=== PATIENT | female | born 1950 | race Caucasian/White ===

== ENCOUNTER 2017-03-17 08:59 | Outpatient (CLI) | payer MEDICARE ==
--- NOTE | 2017-03-19 08:54 | Mammography Report ---
DATE OF SERVICE: 03/17/2017 DIGITAL BILATERAL SCREENING MAMMOGRAM: 03/17/2017 COMPARISON STUDY: Mammogram 02/14/2015. INDICATION: Screening mammography. TECHNIQUE: Bilateral MLO and CC breast views. FINDINGS: There are scattered fibroglandular densities. No dominant mass, architectural distortion, or concerning cluster of microcalcifications are seen. IMPRESSION: BIRADS category: 1, negative. RECOMMENDATION: Annual screening mammogram. STANDARD QUALIFYING STATEMENTS 1. This examination was reviewed with the aid of Computed-Aided Detection (CAD) . 2. A negative or benign imaging report should not delay biopsy if clinically suspicious findings are present. Consider surgical consultation if warranted. More than 5% of cancers are not identified by imaging. 3. Dense breasts may obscure an underlying neoplasm. TD: 03/18/2017 18:47 BOBBY
== END 2017-03-17 09:00 | disposition home or self-care (01) ==
LOC: DI 08:59
PROVIDERS: ATTEND Physician Assistant Medical
DX: Z12.31 Encounter for screening mammogram for malignant neoplasm of breast (principal)
CPT/HCPCS: 77067

== ENCOUNTER 2017-04-06 13:01 | Outpatient (CLI) | payer MEDICARE | END 2017-04-06 13:02 | disposition home or self-care (01) | LOC: SC 13:01 | PROVIDERS: ATTEND Nurse Practitioner Family | DX: G47.33 Obstructive sleep apnea (adult) (pediatric) (principal); G25.81 Restless legs syndrome | CPT/HCPCS: 99204; G0463; 99212 ==

== ENCOUNTER 2017-05-24 10:19 | Emergency (ER) | payer MEDICARE, OTHER ==
[2017-05-24 11:05] LABS: BASOPHILS % (AUTO) 0.1 %; EOSINOPHILS # (AUTO) 0.1 10^3/uL (0.0-0.7); EOSINOPHILS % (AUTO) 0.7 %; HGB - HEMOGLOBIN 12.4 g/dL (12.0-16.0); LYMPHOCYTES # (AUTO) 1.2 10^3/uL (1.5-3.5); LYMPHOCYTES % (AUTO) 8.4 %; MEAN CORPUSCULAR HEMOGLOBIN 31.5 pg (27.0-31.0); MEAN CORPUSCULAR HGB CONC 33.5 g/dL (32.0-36.0); MONOCYTES # (AUTO) 0.4 10^3/uL (0.0-1.0); MONOCYTES % (AUTO) 2.6 %; NEUTROPHILS # (AUTO) 12.1 10^3/uL (1.5-6.6); NEUTROPHILS % (AUTO) 88.2 %; PLT - PLATELET COUNT 244 10^3/uL (130-450); RED BLOOD COUNT 3.93 10^6/uL (4.20-5.40); RED CELL DISTRIBUTION WIDTH 13.8 % (12.0-15.0); WHITE BLOOD COUNT 13.7 x10^3/uL (4.8-10.8)
[2017-05-24 11:18] LABS: ALBUMIN 3.1 g/dL (3.2-5.5); ALBUMIN/GLOBULIN RATIO 0.6 (1.0-2.2); ALKALINE PHOSPHATASE 106 IU/L (42-121); ALT ALANINE AMINOTRANSFERASE 28 IU/L (10-60); AST ASPARTATE AMINOTRANSFERASE 25 IU/L (10-42); BILIRUBIN,TOTAL 0.6 mg/dL (0.2-1.0); BUN - BLOOD UREA NITROGEN 15 mg/dL (6-20); CALCIUM 9.8 mg/dL (8.5-10.3); CARBON DIOXIDE - CO2 25 mmol/L (21-32); CHLORIDE 97 mmol/L (101-111); CREATININE 0.8 mg/dL (0.4-1.0); GFR - MDRD 72 (>89); GLUCOSE 126 mg/dL (70-100); SODIUM 134 mmol/L (135-145); TOTAL PROTEIN 8.5 g/dL (6.7-8.2)
[2017-05-24 11:21] LABS: LIPASE < 10 U/L (22-51)
[2017-05-24 11:22] LABS: RBC MORPHOLOGY (MULTIPLE) 2+ ANISOCYTOSIS (NORMAL)
[2017-05-24 11:38] VITALS: BP 149/85
--- NOTE | 2017-05-24 12:04 | ED Physician Documentation ---
PD HPI URI - Stated complaint Stated Complaint: FLU LIKE SX - Chief complaint Chief Complaint: Resp - History obtained from History obtained from: Patient - History of Present Illness Timing - onset: How many weeks ago (1) Timing duration: Weeks (1) Timing details: Abrupt onset, Still present Associated symptoms: Fever, Chills, Nasal congestion, Swollen nodes, Productive cough. No: Hemoptysis, Chest pain, NVD, Bilateral edema Contributing factors: Immunocompromised (takes methotrexate for psoriasis. stopped it couple days ago.), COPD / asthma. No: Travel Worsened by: Activity Similar symptoms before: Has not had sx before Recently seen: Emergency Dept (seen and Rx with albuterol MDI and Vivian.) Review of Systems Constitutional: reports: Fever, Chills, Myalgias Nose: reports: Rhinorrhea / runny nose, Congestion Throat: denies: Sore throat Cardiac: denies: Chest pain / pressure Respiratory: reports: Dyspnea, Cough GI: reports: Nausea. denies: Abdominal Pain, Vomiting, Diarrhea : denies: Dysuria Skin: denies: Rash, Lesions PD PAST MEDICAL HISTORY - Past Medical History Cardiovascular: Hypertension Respiratory: Pneumonia Derm: Psoriasis - Past Surgical History Past Surgical History: Yes Ortho: Spine surgery - Present Medications Home Medications: Ambulatory Orders Medication Instructions Recorded Confirmed Methotrexate Sodium [Methotrexate] 2.5 mg PO 12/17/12 12/17/12 Albuterol Sulf [Ventolin Hfa 1 - 2 puffs INH Q4HR PRN #1 inhaler 05/24/17 Inhaler] Benzonatate [Tessalon] 100 mg PO TID PRN #25 capsule 05/24/17 Dexamethasone [Decadron] 4 mg PO DAILY #5 tablet 05/24/17 Doxycycline Monohydrate 100 mg PO BID #14 tablet 05/24/17 Guaifenesin [Mucinex] 600 mg PO 05/24/17 - Allergies Allergies/Adverse Reactions: Allergies Allergy/AdvReac Type Severity Reaction Status Date / Time No Known Drug Allergies Allergy Verified 05/24/17 10:38 - Social History Does the pt smoke?: No Smoking Status: Never smoker Does the pt drink ETOH?: Yes Does the pt have substance abuse?: No - POLST Patient has POLST: No PD ED PE NORMAL - Vitals Vital signs reviewed: Yes - General General: Alert and oriented X 3, No acute distress, Well developed/nourished - HEENT HEENT: Ears normal, Moist mucous membranes, Pharynx benign - Neck Neck: Supple, no meningeal sign, No adenopathy - Cardiac Cardiac: RRR (mild tachy), No murmur - Respiratory Respiratory: No respiratory distress. No: Clear bilaterally (diffuse wheezing and some coarse sounds. ) - Abdomen Abdomen: Soft, Non tender - Back Back: No CVA TTP - Derm Derm: Normal color, Warm and dry - Extremities Extremities: No deformity, No tenderness to palpate, Normal ROM s pain, No edema , No calf tenderness / cord - Neuro Neuro: Alert and oriented X 3, No motor deficit, Normal speech Eye Opening: Spontaneous Motor: Obeys Commands Verbal: Oriented GCS Score: 15 - Psych Psych: Normal mood Results - Vitals Vitals: Oxygen O2 Source Room air - Labs Labs: Microbiology 05/24/17 12:15 Blood Culture - Preliminary Blood NO GROWTH AFTER 2 DAYS 05/24/17 10:54 Blood Culture - Preliminary Blood NO GROWTH AFTER 2 DAYS Laboratory Tests 05/24/17 05/24/17 05/24/17 10:54 10:54 10:54 WBC 13.7 H RBC 3.93 L Hgb 12.4 Hct 37.0 MCV 94.0 MCH 31.5 H MCHC 33.5 RDW 13.8 Plt Count 244 MPV 8.0 Neut # 12.1 H Lymph # 1.2 L [place] # 0.4 Eos # 0.1 Baso # 0.0 Absolute Nucleated RBC 0.00 Nucleated RBC % 0.0 Manual Slide Review Indicated RBC Morph Micro Appear 2+ ANISOCYTOSIS Sodium 134 L Potassium 3.4 L Chloride 97 L Carbon Dioxide 25 Anion Gap 12.0 BUN 15 Creatinine 0.8 Estimated GFR (MDRD) 72 L Glucose 126 H Lactic Acid 1.7 Calcium 9.8 Total Bilirubin 0.6 AST 25 ALT 28 Alkaline Phosphatase 106 Total Protein 8.5 H Albumin 3.1 L Globulin 5.4 H Albumin/Globulin Ratio 0.6 L Lipase < 10 L - Rads (name of study) chest Radiology: Prelim report reviewed, EMP read contemporaneously PD MEDICAL DECISION MAKING - ED course Complexity details: considered differential, d/w patient Departure - Departure Disposition: 01 Home, Self Care Clinical Impression: Pneumonia Qualifiers: Pneumonia type: due to unspecified organism Laterality: bilateral Lung location : unspecified part of lung Qualified Code(s): J18.9 - Pneumonia, unspecified organism Dyspnea Qualifiers: Dyspnea type: shortness of breath Qualified Code(s): R06.02 - Shortness of breath Condition: Stable Record reviewed to determine appropriate education?: Yes Instructions: ED Pneumonia Adult Follow-Up: Kanika Smith PA-C [Primary Care Provider] - Prescriptions: Albuterol Sulf [Ventolin Hfa Inhaler] 1 - 2 puffs INH Q4HR PRN #1 inhaler PRN Reason: Shortness Of Air/Wheezing Benzonatate [Tessalon] 100 mg PO TID PRN #25 capsule PRN Reason: Cough Dexamethasone [Decadron] 4 mg PO DAILY #5 tablet Doxycycline Monohydrate 100 mg PO BID #14 tablet Comments: Your chest x-ray still shows the pneumonia and maybe a little bit worse. However your oxygen level and blood tests do not show signs of hypoxia or sepsis. We will treat this with different medications with the doxycycline antibiotic, several days of Decadron steroid, and albuterol inhaler 2 puffs 4 times a day for 7-10 days, and Tessalon if needed for cough. Continue Tylenol if needed for fevers or pains. Recheck with your primary care in 2-3 days. Return if worsening. Discharge Date/Time: 05/24/17 14:15
[2017-05-24] MEDS ORDERED: IPRATROPIUM/ALBUTEROL 3 ML NEB INH STA (12:13)
[2017-05-24] MEDS ORDERED: BENZONATATE 100 MG CAPSULE PO STA (12:14)
[2017-05-24] MEDS ORDERED: ACETAMINOPHEN 325 MG TABLET PO STA (12:14)
[2017-05-24] MEDS ORDERED: DEXAMETHASONE 10 MG/ML VIAL PO STA (12:14)
[2017-05-24] MEDS ORDERED: CHERRY SYRUP 10 ML UDC PO ONE (12:32)
--- NOTE | 2017-05-24 13:49 | XRAY Preliminary Report ---
Exam: XR CHEST 2 VIEW X-RAY IMPRESSION: Multifocal nodular pulmonary opacities throughout both lungs. Differential considerations include multifocal pneumonia, septic emboli, and metastatic disease amongst other etiologies. [facility] SITE ID: [id number]
[2017-05-24] MEDS ORDERED: SULFAMETH/TRIMETH DS 800/160 MG TABLET PO STA (13:52)
--- NOTE | 2017-05-24 13:52 | XRAY Report ---
EXAM: CHEST RADIOGRAPHY EXAM DATE: 05/24/2017 01:31 PM. CLINICAL HISTORY: Chest pain left-sided. COMPARISON: Chest and rib radiographs 12/16/2013. TECHNIQUE: 2 views. FINDINGS: Lungs/Pleura: Multifocal nodular pulmonary opacity is present throughout both lungs. No pleural effus ion. No pneumothorax. Lung volumes are borderline large with flattening of diaphragm and increased re trosternal clear space. Mediastinum: Heart and mediastinal contours are unremarkable. Other: None. IMPRESSION: Multifocal nodular pulmonary opacities throughout both lungs. Differential considerations include multifocal pneumonia, septic emboli, and metastatic disease amongst other etiologies. [facility] Referring Provider Line: [phone] SITE ID: [id number]
[2017-05-24] MEDS ORDERED: DOXYCYCLINE 100 MG TABLET PO STA (13:55)
== END 2017-05-24 14:15 | disposition home or self-care (01) ==
LOC: ED 10:19
DX: J18.9 Pneumonia, unspecified organism (principal); R06.02 Shortness of breath; R00.0 Tachycardia, unspecified; I10 Essential (primary) hypertension
CPT/HCPCS: 36415; 71046; 80053; 83605; 83690; 85025; 87040; 94640; 99283; A9270

== ENCOUNTER 2017-06-07 10:47 | Outpatient (CLI) | payer MEDICARE | END 2017-06-07 10:48 | disposition home or self-care (01) | LOC: SC 10:47 | PROVIDERS: ATTEND Nurse Practitioner Family | DX: G47.33 Obstructive sleep apnea (adult) (pediatric) (principal) | CPT/HCPCS: 99214; G0463; 99212 ==

== ENCOUNTER 2017-08-25 08:00 | Outpatient (CLI) | payer MEDICARE | END 2017-08-25 08:01 | disposition home or self-care (01) | LOC: LAB.WCP 08:00 | PROVIDERS: ATTEND Family Medicine | DX: R31.9 Hematuria, unspecified (principal) | CPT/HCPCS: 87086 ==

== ENCOUNTER 2017-09-01 09:17 | Outpatient (CLI) | payer MEDICARE ==
[2017-09-01] MEDS ORDERED: ALBUTEROL NEB 2.5 MG/3 ML INH PRN (17:20)
== END 2017-09-01 09:18 | disposition home or self-care (01) ==
LOC: RT 09:17
PROVIDERS: ATTEND Physician Assistant Medical
DX: J45.998 Other asthma (principal)
CPT/HCPCS: 94060; 94664

== ENCOUNTER 2017-10-02 02:02 | Emergency (ER) | payer MEDICARE, OTHER ==
[2017-10-02 02:41] LABS: BILIRUBIN,URINE NEGATIVE (NEGATIVE); GLUCOSE, URINE (UA) NEGATIVE (NEGATIVE); KETONES,URINE (UA) NEGATIVE (NEGATIVE); LEUKOCYTE ESTERASE, URINE NEGATIVE (NEGATIVE); NITRITE,URINE NEGATIVE (NEGATIVE); OCCULT BLOOD,URINE LARGE (NEGATIVE); PROTEIN,URINE NEGATIVE (NEGATIVE); UROBILINOGEN,URINE 0.2 (NORMAL) E.U./dL (NORMAL)
--- NOTE | 2017-10-02 02:52 | ED Physician Documentation ---
PD HPI ABD PAIN - Stated complaint Stated Complaint: LT FLANK,ABDOMINAL PAIN - Chief complaint Chief Complaint: Abd Pain - History obtained from History obtained from: Patient - History of Present Illness Timing - onset: Enter time (20:00), Today Timing - duration: Hours Timing - details: Abrupt onset Pain level now: 8 Quality: Pain Location: LLQ Radiation: Lower back Improved by: Other (nothing) Worsened by: Other (no exacerbating factors) Associated symptoms: Nausea, Vomiting. No: Fever Similar symptoms before: Diagnosis (similar, milder symptoms in the past, had KUB plain film last month which was unremarkable) Recently seen: Not recently seen Review of Systems Constitutional: reports: Reviewed and negative Cardiac: reports: Reviewed and negative Respiratory: reports: Reviewed and negative GI: reports: Abdominal Pain, Nausea, Vomiting : denies: Dysuria, Frequency Musculoskeletal: reports: Back pain PD PAST MEDICAL HISTORY - Past Medical History Past Medical History: Yes Cardiovascular: Hypertension Respiratory: Pneumonia Neuro: None Endocrine/Autoimmune: None GI: None EPIC MANAGER: None : None HEENT: None Psych: None Musculoskeletal: None, Chronic back pain Derm: Psoriasis - Past Surgical History Past Surgical History: Yes Ortho: Spine surgery - Present Medications Home Medications: Ambulatory Orders Medication Instructions Recorded Confirmed Methotrexate Sodium [Methotrexate] 2.5 mg PO 12/17/12 12/17/12 Albuterol Sulf [Ventolin Hfa 1 - 2 puffs INH Q4HR PRN #1 inhaler 05/24/17 Inhaler] Benzonatate [Tessalon] 100 mg PO TID PRN #25 capsule 05/24/17 Dexamethasone [Decadron] 4 mg PO DAILY #5 tablet 05/24/17 Doxycycline Monohydrate 100 mg PO BID #14 tablet 05/24/17 Guaifenesin [Mucinex] 600 mg PO 05/24/17 Tamsulosin [Flomax] 0.4 mg PO DAILY #10 capsule 10/02/17 oxyCODONE/ACET 5/325 [Percocet 5 1 - 2 each PO Q6H PRN #20 tablet 10/02/17 mg/325 mg] - Allergies Allergies/Adverse Reactions: Allergies Allergy/AdvReac Type Severity Reaction Status Date / Time No Known Drug Allergies Allergy Verified 10/02/17 02:20 - Social History Does the pt smoke?: No Smoking Status: Never smoker Does the pt drink ETOH?: Yes Does the pt have substance abuse?: No - POLST Patient has POLST: No PD ED PE NORMAL - Vitals Vital signs reviewed: Yes - General General: Alert and oriented X 3, Well developed/nourished, Other (obvious painful distress) - Cardiac Cardiac: RRR, No murmur - Respiratory Respiratory: No respiratory distress, Clear bilaterally - Abdomen Abdomen: Soft, Non tender - Back Back: No CVA TTP - Derm Derm: Normal color, Warm and dry, No rash Results - Vitals Vitals: Vital Signs - 24 hr 10/02/17 10/02/17 10/02/17 02:18 03:44 04:24 Temperature 36.0 C L Heart Rate 85 84 Respiratory 18 16 17 Rate Blood Pressure 137/85 H 141/84 H O2 Saturation 97 96 10/02/17 05:56 Temperature Heart Rate Respiratory 17 Rate Blood Pressure O2 Saturation Oxygen O2 Source Room air - Labs Labs: Laboratory Tests 10/02/17 10/02/17 10/02/17 02:10 03:05 03:05 WBC 10.7 RBC 4.52 Hgb 14.3 Hct 43.0 MCV 95.1 MCH 31.7 H MCHC 33.3 RDW 15.1 H Plt Count 254 MPV 7.8 L Neut # (Auto) 8.7 H Lymph # (Auto) 1.4 L [place] # (Auto) 0.4 Eos # (Auto) 0.1 Baso # (Auto) 0.1 Absolute Nucleated RBC 0.00 Nucleated RBC % 0.0 Sodium 136 Potassium 4.3 Chloride 104 Carbon Dioxide 25 Anion Gap 7.0 BUN 19 Creatinine 1.1 H Estimated GFR (MDRD) 50 L Glucose 137 H Calcium 9.3 Total Bilirubin 0.7 AST 26 ALT 24 Alkaline Phosphatase 83 Total Protein 8.1 Albumin 4.2 Globulin 3.9 Albumin/Globulin Ratio 1.1 Lipase 24 Urine Color LT. YELLOW Urine Clarity CLEAR Urine pH 6.0 Ur Specific [place] 1.025 Urine Protein NEGATIVE Urine Glucose (UA) NEGATIVE Urine Ketones NEGATIVE Urine Occult Blood LARGE H Urine Nitrite NEGATIVE Urine Bilirubin NEGATIVE Urine Urobilinogen 0.2 (NORMAL) Ur Leukocyte Esterase NEGATIVE Urine RBC 11-25 H Urine WBC 0-3 Ur Squamous Epith Cells RARE Squamous Urine Bacteria None Seen Ur Microscopic Review INDICATED Urine Culture Comments NOT INDICATED - Rads (name of study) CT A/P Radiology: Prelim report reviewed, See rad report PD MEDICAL DECISION MAKING - ED course Complexity details: reviewed results, re-evaluated patient, considered differential, d/w patient - Sepsis Event Vital Signs: Vital Signs - 24 hr 10/02/17 10/02/17 10/02/17 02:18 03:44 04:24 Temperature 36.0 C L Heart Rate 85 84 Respiratory 18 16 17 Rate Blood Pressure 137/85 H 141/84 H O2 Saturation 97 96 10/02/17 05:56 Temperature Heart Rate Respiratory 17 Rate Blood Pressure O2 Saturation Oxygen O2 Source Room air Departure - Departure Disposition: 01 Home, Self Care Clinical Impression: Renal colic Condition: Good Instructions: ED Stone Renal W Colic Follow-Up: Kanika Smith PA-C [Primary Care Provider] - Prescriptions: oxyCODONE/ACET 5/325 [Percocet 5 mg/325 mg] 1 - 2 each PO Q6H PRN #20 tablet PRN Reason: Pain Tamsulosin [Flomax] 0.4 mg PO DAILY #10 capsule Discharge Date/Time: 10/02/17 06:00
[2017-10-02 02:56] LABS: BACTERIA,URINE None Seen /HPF (None Seen); CLARITY,URINE CLEAR (CLEAR); SQUAMOUS EPITHELIAL CELL,UR RARE Squamous (<= Few)
[2017-10-02] MEDS ORDERED: KETOROLAC 60 MG/2 ML VIAL IVP STA (03:05)
[2017-10-02] MEDS ORDERED: MORPHINE 10 MG/ML VIAL IVP STA ×2 (03:06→05:36)
[2017-10-02] MEDS ORDERED: ONDANSETRON 4 MG/2 ML VIAL IVP STA (03:15)
[2017-10-02 03:16] LABS: BASOPHILS # (AUTO) 0.1 10^3/uL (0.0-0.1); BASOPHILS % (AUTO) 0.7 %; EOSINOPHILS # (AUTO) 0.1 10^3/uL (0.0-0.7); EOSINOPHILS % (AUTO) 0.9 %; HGB - HEMOGLOBIN 14.3 g/dL (12.0-16.0); LYMPHOCYTES # (AUTO) 1.4 10^3/uL (1.5-3.5); LYMPHOCYTES % (AUTO) 13.4 %; MEAN CORPUSCULAR HEMOGLOBIN 31.7 pg (27.0-31.0); MEAN CORPUSCULAR HGB CONC 33.3 g/dL (32.0-36.0); MEAN CORPUSCULAR VOLUME 95.1 fL (81.0-99.0); MEAN PLATELET VOLUME 7.8 fL (7.9-10.8); MONOCYTES # (AUTO) 0.4 10^3/uL (0.0-1.0); MONOCYTES % (AUTO) 3.8 %; NEUTROPHILS # (AUTO) 8.7 10^3/uL (1.5-6.6); NEUTROPHILS % (AUTO) 81.2 %; PLT - PLATELET COUNT 254 10^3/uL (130-450); RED BLOOD COUNT 4.52 10^6/uL (4.20-5.40); RED CELL DISTRIBUTION WIDTH 15.1 % (12.0-15.0); WHITE BLOOD COUNT 10.7 x10^3/uL (4.8-10.8)
[2017-10-02 03:29] LABS: ALBUMIN 4.2 g/dL (3.2-5.5); ALBUMIN/GLOBULIN RATIO 1.1 (1.0-2.2); BILIRUBIN,TOTAL 0.7 mg/dL (0.2-1.0); CALCIUM 9.3 mg/dL (8.5-10.3); CREATININE 1.1 mg/dL (0.4-1.0); TOTAL PROTEIN 8.1 g/dL (6.7-8.2)
[2017-10-02 04:25] VITALS: BP 141/84
--- NOTE | 2017-10-02 05:07 | CT Report ---
Procedure Date: 10/02/2017 Accession Number: [id number] / [id number] Procedure: CT - Abdomen/Pelvis W/O CPT Code: FULL RESULT: EXAM: CT ABDOMEN AND PELVIS (CT KUB) EXAM DATE: 10/02/2017 04:18 AM. CLINICAL HISTORY: Left flank pain. COMPARISONS: None. TECHNIQUE: Routine axial helical CT imaging was performed through the abdomen and pelvis without IV contrast. Reconstructions: Coronal and sagittal. In accordance with CT protocol optimization, one or more of the following dose reduction techniques were utilized for this exam: automated exposure control, adjustment of mA and/or KV based on patient size, or use of iterative reconstructive technique. FINDINGS: Lung Bases: Mild bibasilar atelectasis. Right Kidney/Ureter: No stones, hydronephrosis, or hydroureter. No perinephric fat stranding. Left Kidney/Ureter: Cyst measuring 3.9 cm. Nonobstructing 2 mm stone in the kidney. Moderately to severely obstructing stone in the ureter at the level of the iliac crest measuring 4 x 4 x 7 mm, series 3 image 86. Other Solid Organs: Noncontrast images of the solid organs are grossly unremarkable. Gallbladder/Bile Ducts: Distended gallbladder with some small calcified stones. No obvious cholecystitis. Peritoneal Cavity: Colonic diverticula. No diverticulitis identified. No bowel obstruction seen. No free air or free fluid. No lymphadenopathy. Appendix appears normal. Pelvic Organs: No bladder stones or wall thickening. Noncontrast images of the visualized pelvic organs are unremarkable. Vasculature: Mild to moderate atherosclerosis. No aortic aneurysm. Other: Osteopenia. Degenerative changes in the spine. IMPRESSION: 1. Moderately to severely obstructing 4 x 4 x 7 mm stone in the left ureter at the level of the iliac crest. 2. Nonobstructing 2 mm stone in the left kidney. 3. Distended gallbladder with some small calcified stones. No obvious cholecystitis. 4. Colonic diverticula without evidence of diverticulitis. [facility]
[2017-10-02] MEDS ORDERED: oxyCODONE/ACET 5/325 Prepack 4 PO STA (05:36)
[2017-10-02] MEDS ORDERED: TAMSULOSIN 0.4 MG CAPSULE PO STA (05:36)
== END 2017-10-02 06:00 | disposition home or self-care (01) ==
LOC: ED 02:02
DX: N20.2 Calculus of kidney with calculus of ureter (principal); K80.20 Calculus of gallbladder without cholecystitis without obstruction; K57.30 Diverticulosis of large intestine without perforation or abscess without bleeding; I10 Essential (primary) hypertension
CPT/HCPCS: 36415; 74176; 80053; 81001; 83690; 85025; 96374; 96375; 99284; A9270; 81003; 87086

== ENCOUNTER 2018-03-25 08:00 | Outpatient (CLI) | payer MEDICARE, OTHER ==
[2018-03-25 13:16] LABS: BASOPHILS # (AUTO) 0.1 10^3/uL (0.0-0.1); BASOPHILS % (AUTO) 0.8 %; EOSINOPHILS # (AUTO) 0.2 10^3/uL (0.0-0.7); EOSINOPHILS % (AUTO) 3.3 %; HGB - HEMOGLOBIN 12.5 g/dL (12.0-16.0); MEAN CORPUSCULAR HEMOGLOBIN 32.9 pg (27.0-31.0); MEAN CORPUSCULAR HGB CONC 34.6 g/dL (32.0-36.0); MEAN CORPUSCULAR VOLUME 95.1 fL (81.0-99.0); MEAN PLATELET VOLUME 7.8 fL (7.9-10.8); MONOCYTES # (AUTO) 0.6 10^3/uL (0.0-1.0); MONOCYTES % (AUTO) 8.8 %; NEUTROPHILS # (AUTO) 3.7 10^3/uL (1.5-6.6); NEUTROPHILS % (AUTO) 56.1 %; PLT - PLATELET COUNT 333 10^3/uL (130-450); RED BLOOD COUNT 3.79 10^6/uL (4.20-5.40); RED CELL DISTRIBUTION WIDTH 13.6 % (12.0-15.0); WHITE BLOOD COUNT 6.5 x10^3/uL (4.8-10.8)
[2018-03-25 13:34] LABS: ALBUMIN 3.6 g/dL (3.2-5.5); ALBUMIN/GLOBULIN RATIO 0.9 (1.0-2.2); ALKALINE PHOSPHATASE 73 IU/L (42-121); ALT ALANINE AMINOTRANSFERASE 17 IU/L (10-60); AST ASPARTATE AMINOTRANSFERASE 20 IU/L (10-42); BILIRUBIN,TOTAL 0.5 mg/dL (0.2-1.0); BUN - BLOOD UREA NITROGEN 17 mg/dL (6-20); CALCIUM 9.4 mg/dL (8.5-10.3); CARBON DIOXIDE - CO2 26 mmol/L (21-32); CHLORIDE 105 mmol/L (101-111); CHOL/HDL RATIO 2.7 (<4.4); CHOLESTEROL 156 mg/dL; CREATININE 0.6 mg/dL (0.4-1.0); GFR - MDRD 99 (>89); GLUCOSE 97 mg/dL (70-100); HDL CHOLESTEROL 58 mg/dL; LDL CHOLESTEROL,CALCULATED 82 mg/dL; LDL/HDL RATIO 1.4 (<4.4); SODIUM 137 mmol/L (135-145); TOTAL PROTEIN 7.8 g/dL (6.7-8.2); VLDL CHOLESTEROL 16 mg/dL
== END 2018-03-25 23:59 | disposition home or self-care (01) ==
LOC: LAB.WCP 08:00
PROVIDERS: ATTEND Physician Assistant Medical
DX: I10 Essential (primary) hypertension (principal); E55.9 Vitamin D deficiency, unspecified; E78.5 Hyperlipidemia, unspecified; E03.9 Hypothyroidism, unspecified
CPT/HCPCS: 36415; 80053; 80061; 82306; 83721; 84443; 85025

== ENCOUNTER 2018-05-23 11:17 | Outpatient (CLI) | payer MEDICARE, OTHER | END 2018-05-23 11:18 | disposition home or self-care (01) | LOC: DI 11:17 | PROVIDERS: ATTEND Nurse Practitioner | DX: R07.89 Other chest pain (principal) | CPT/HCPCS: 93306 ==

== ENCOUNTER 2018-06-07 10:48 | Outpatient (CLI) | payer MEDICARE, OTHER ==
--- NOTE | 2018-06-07 13:26 | Mammography Report ---
Reason: SCREENING MAMMO Procedure Date: 06/07/2018 Accession Number: [id number] / [id number] Procedure: MGN - Screening Mammo Dig Bilat CPT Code: FULL RESULT: EXAM: Screening Mammo Dig Bilat DATE: 06/07/2018 11:08 AM CLINICAL HISTORY: Screening encounter. History of early menses. History of bilateral breast reduction surgery as well as lumpectomy with benign pathology. TECHNIQUE: Bilateral CC and MLO views were obtained. COMPARISON: 03/17/2017 through 08/28/2013. FINDINGS: The breasts demonstrate scattered fibroglandular densities bilaterally. There are coarse typically benign calcifications. Postsurgical appearance is stable. The bilateral CC views do not adequately image the posterior breast tissue warranting technical repetition. No suspicious masses, clustered microcalcifications, or regions of architectural distortion are identified. IMPRESSION: Incomplete examination RECOMMENDATION: Additional evaluation as above. Technical repeat imaging of the bilateral CC views. BIRADS CATEGORY 0: Incomplete examination STANDARD QUALIFYING STATEMENTS: 1. This examination was reviewed with the aid of Computer-Aided Detection (CAD). 2. A negative or benign imaging report should not delay biopsy if clinically suspicious findings are present. Consider surgical consultation if warrented. More than 5% of cancers are not identified by imaging. 3. Dense breasts may obscure an underlying neoplasm.
== END 2018-06-07 10:49 | disposition home or self-care (01) ==
LOC: DI.N 10:48
DX: Z12.31 Encounter for screening mammogram for malignant neoplasm of breast (principal)
CPT/HCPCS: 77067

== ENCOUNTER 2018-06-14 10:34 | Outpatient (CLI) | payer MEDICARE, OTHER ==
--- NOTE | 2018-06-18 07:52 | Mammography Report ---
Reason: ROUTINE MAMMO Procedure Date: 06/14/2018 Accession Number: [id number] / [id number] Procedure: MGN - Screening Mammo Dig Bilat CPT Code: FULL RESULT: FINDINGS: IMPRESSION: For results, please reference the addended Screening Mammogram report dated 06/07/2018.
--- NOTE | 2018-06-18 07:52 | Mammography Report ---
Reason: TECH REPEAT - NO CHARGE - ROUTINE MAMMO Procedure Date: 06/14/2018 Accession Number: [id number] / [id number] Procedure: MGN - No Charge Procedure CPT Code: FULL RESULT: FINDINGS: IMPRESSION: For results, please reference the addended Screening Mammogram report dated 06/07/2018.
== END 2018-06-14 10:35 | disposition home or self-care (01) ==
LOC: DI.N 10:34
PROVIDERS: ATTEND Physician Assistant Medical
DX: Z12.31 Encounter for screening mammogram for malignant neoplasm of breast (principal)
CPT/HCPCS: 77067